=== PATIENT | female | born 1980 | race African-American/Black ===

== ENCOUNTER 2021-11-05 03:21 | Emergency (ER) | payer OTHER ==
[~2021-11-05] VITALS: Ht 175.3 cm; Wt 109.0 kg
[2021-11-05 03:30] VITALS: BP 189/110
== END 2021-11-05 12:03 | disposition left against medical advice (07) ==
LOC: ER 03:21
DX: Z53.21 Procedure and treatment not carried out due to patient leaving prior to being seen by health care provider (principal)